=== PATIENT | male | born 1960 | race Caucasian/White ===

== ENCOUNTER 2016-09-21 05:37 | Emergency (ER) | payer BC ==
[~2016-09-21] VITALS: Ht 180.3 cm; Wt 106.1 kg
[~2016-09-21 05:37] MED LIST: ASPI-252 PO; CALC600T4 PO; CITA40TA5 PO; CYAN100072 PO; GABA-586 PO; HYDR200T PO; LEVO500T8 PO; OMEG500C3 PO; SIMV20TA3 PO; WARF10TA PO
[2016-09-21] MEDS ORDERED: CEPH-264 PO (06:27)
--- NOTE | 2016-09-21 06:27 | PHYS DOC ---
Past Medical History Past Medical History: CVA, Diabetes-Type II, Fibromyalgia, High Cholesterol, Other Additional Past Medical Histor: stroke 01/26, LUPUS,BLIND RT EYE,BLE NEUROPATHY, BLE WEAKNESS Past Surgical History: Other Additional Past Surgical Histo: gallbladder, hernia repair, carpal tunnel repair Alcohol Use: None Drug Use: None Adult General Chief Complaint Chief Complaint: EARACHE/EAR PAIN HPI HPI Patient is a 56 year old male who presents with bleeding from his L ear. Patient's had popped a small pimple overnight that was just inside the tragus of his L ear, which then started bleeding. The bleeding continued for some time as patient takes warfarin. Patient also concerned because he is having some pain anterior to his ear. He has not taken anything for pain. No other complaints. Review of Systems Review of Systems Constitutional: Denies fever or chills Eyes: Denies change in visual acuity or eye pain HENT: Bleeding from L ear, L facial pain Respiratory: Denies cough or shortness of breath Cardiovascular: Denies chest pain GI: Denies abdominal pain, nausea, vomiting, bloody stools or diarrhea : Denies dysuria or hematuria Musculoskeletal: Denies back pain or joint pain Integument: Denies rash or skin lesions Neurologic: Denies headache, focal weakness or sensory changes Current Medications Current Medications Current Medications Medications (Trade) Dose Ordered Sig/Anette Start Time Stop Time Status Last Admin Dose Admin Cephalexin HCl (Keflex) 500 mg 1X ONCE 09/21/16 07:00 09/21/16 07:00 DC 09/21/16 06:35 500 MG Allergies Allergies Allergies Coded Allergies Type Severity Reaction Last Updated Verified acetaminophen Allergy Mild Nausea and Vomiting 09/21/16 Yes bupropion HCl Allergy Mild Nausea and Vomiting 09/21/16 Yes codeine Allergy Mild Nausea 09/21/16 Yes lorazepam Allergy Mild Nausea and Vomiting 09/21/16 Yes oxycodone HCl Allergy Mild Nausea and Vomiting 09/21/16 Yes Physical Exam Physical Exam Constitutional: Well developed, well nourished, no acute distress, non-toxic appearance HENT: Normocephalic. Blood in L ear canal from small wound on inside of tragus, no active bleeding at this time. TTP just anterior to tragus; no skin lesion or other abnormality noted; oropharynx clear without erythema or exudate Eyes: EOMI, conjunctiva normal, no discharge Neck: Normal range of motion, no stridor Cardiovascular: Heart rate normal, regular rhythm, no murmur Lungs & Thorax: Bilateral breath sounds clear to auscultation Abdomen: Bowel sounds normal, soft, non-distended, no TTP Skin: Warm, dry, no erythema, no rash Extremities: No obvious deformity, no edema Neurologic: Alert and oriented X 3, no gross deficits noted Current Patient Data Vital Signs Vital Signs Date Time Temp Pulse Resp B/P Pulse Ox O2 Delivery O2 Flow Rate FiO2 09/21/16 06:35 78 18 130/84 100 Room Air 09/21/16 05:50 97.9 97.9 EKG EKG [] Radiology/Procedures Radiology/Procedures [] Course & Med Decision Making Course & Med Decision Making Pertinent Labs and Imaging studies reviewed. (See chart for details) Patient is 56 year old male who presents with bleeding from L ear after his picked at a pimple inside the ear. Bleeding increased by warfarin use. No active bleeding at this time. I cleaned blood from ear canal using cotton swabs , no other abnormality noted within ear canal or TM. Patient also has c/o pain just anterior to his ear; I believe this is due to lymphadenopathy (related to popped pimple?). As such, will cover patient with antibiotics. Dose of keflex given in ED. Patient discharged home with rx for same, instructions to follow up with PCP, instructions to follow up with ENT if continued ear problems, and return precautions. Dragon Disclaimer Dragon Disclaimer This electronic medical record was generated, in whole or in part, using a voice recognition dictation system. Departure Departure Impression: Primary Impression: Ear bleeding Disposition: HOME, SELF-CARE Condition: STABLE Referrals: KT OLIVIER MD (PCP) AHSAN BUSTILLOS MD Patient Instructions: Warfarin, [id number] Additional Instructions: Thank you for allowing us to provide care today in the Emergency Department. Take the provided medication as directed. Schedule a follow up appointment with your primary care doctor. You have also been given the contact information for a ENT (ear, nose, throat) doctor if you have any further problems with your ear. Return promptly to the Emergency Department if you develop any new or concerning symptoms. Scripts Cephalexin (Keflex)500 Mg Capsule1 Cap PO BID #[id number] CAP Prov:FAUSTINA JEFFRIES MD 09/21/16 FAUSTINA JEFFRIES MD Sep 21, 2016 06:27
[2016-09-21 06:35] VITALS: BP 130/84
[2016-09-21] MEDS ORDERED: CEPHALEXIN 250 MG CAPSULE PO ONE (07:00)
== END 2016-09-21 06:39 | disposition home or self-care (01) ==
LOC: ER 05:37
DX: H92.22 Otorrhagia, left ear (principal); E78.00 Pure hypercholesterolemia, unspecified; M79.7 Fibromyalgia; Z86.73 Personal history of transient ischemic attack (TIA), and cerebral infarction without residual deficits; H54.41 Blindness, right eye, normal vision left eye; E11.40 Type 2 diabetes mellitus with diabetic neuropathy, unspecified; Z88.6 Allergy status to analgesic agent; Z88.5 Allergy status to narcotic agent; Z88.8 Allergy status to other drugs, medicaments and biological substances
CPT/HCPCS: 99283

== ENCOUNTER → 2018-09-12 | Outpatient (CLI) | payer BC, MEDICARE ==
[~2018-09-12] MED LIST changes: +CEPH-264 PO; -GABA-586 PO; +GABA300C18 PO; +GADOBUTROL 7.5 MMOL/7.5 ML VIAL INT ART ONE; -HYDR200T PO; +HYDR200T71 PO; +IOHEXOL 300 MG/ML 50 ML VIAL. INT ART ONE; +LIDOCAINE 1% Multi-Dose 20 ML VIAL. ID ONE; -WARF10TA PO; +WARF10TA45 PO
--- NOTE | 2018-09-12 16:13 | KCIC ---
MR arthrogram of the right hip Indication: Right groin pain chronically. Pain is sharp. Technique: Standard 4 plane sequences are obtained. Intra-articular contrast was injected by different radiologist, who will dictate that procedure as a separate report. Findings: Artifact: No significant image degradation. Bones: No bone lesion, acute fracture or acute bone marrow edema. No femoral head osteonecrosis. Joint: Moderate primary osteoarthritis. Subchondral cyst at acetabulum. Labrum: Mild heterogeneity of the labrum compatible with degeneration. No clear cut labral detachment. Gluteus minimus tendon: Intact Gluteus medius tendon: Intact Hamstring tendon: Intact Iliopsoas tendon: Intact Rectus femoris tendon attachment: Intact Soft tissues:No significant abnormality. Impression: 1. Moderate primary osteoarthritis at the right hip. 2. Labral degeneration without clear-cut detachment. Electronically signed by: Jeremy Cruz MD (09/12/2018 2:40 PM) [id number]
--- NOTE | 2018-09-12 16:49 | KCIC ---
Right hip injection using fluoroscopic guidance, prior to MR. HISTORY: Hip pain. TECHNIQUE: The procedure was explained to the patient as were potential risks, including among others infection, bleeding or allergic reaction. All questions were answered. Informed written and verbal consent was obtained. The hip region was prepped and draped in the usual sterile manner. Following administration of local anesthetic, a 22-gauge needle was advanced into the anterior hip. Following negative aspiration, 12 cc of a solution of 5cc Omnipaque-300 contrast, 5 cc 1% lidocaine, 10 cc normal saline, and 0.1 cc gadolinium was injected without difficulty. The needle was removed. There was good hemostasis at the injection site. The patient left in stable condition without immediate complication. A single spot image is obtained. FLUOROSCOPY TIME:?31 seconds Electronically signed by: Jeremy Cruz MD (09/12/2018 4:45 PM) [id number]
== END | disposition home or self-care (01) ==
LOC: KCIC 12:48
PROVIDERS: ATTEND Family Medicine
DX: M16.11 Unilateral primary osteoarthritis, right hip (principal); M85.48 Solitary bone cyst, other site
CPT/HCPCS: 73525; 73722; A9585; Q9967